=== PATIENT | female | born 2000 | race African-American/Black ===

== ENCOUNTER 2022-06-26 16:53 | Emergency (ER) | payer OTHER ==
[2022-06-26 17:01] VITALS: BP 106/73; PULSE 91; RESP 19; TEMP 97.9; BMI 32.8
== END 2022-06-26 20:11 | disposition home or self-care (01) ==
LOC: JERFT 16:53
DX: Z32.01 Encounter for pregnancy test, result positive (principal)
CPT/HCPCS: 36415; 84702; 99282-25

== ENCOUNTER 2023-03-03 18:58 | Emergency (ER) | payer OTHER ==
[2023-03-03 19:15] VITALS: BP 120/84; PULSE 65; RESP 18; TEMP 98.1; BMI 34.4
[2023-03-03 22:00] LABS: BASO % 0.8 % (0-2.0); EOS % 1.1 % (0-4.5); HEMATOCRIT 42.7 % (32.4-45.2); LYMPH % 37.3 % (8-40); MCH 24.6 pg (25.7-33.7); MCHC 32.8 g/dl (32.0-36.0); MEAN CELL VOLUME 74.9 fl (80-96); MEAN PLT VOLUME 10.4 fl (7.5-11.1); MONO % 9.6 % (3.8-10.2); NEUT % 51.2 % (42.8-82.8); PLATELET COUNT 222 10^3/uL (134-434); WHITE BLOOD COUNT 4.6 K/mm3 (4.0-10.0)
[2023-03-03 22:03] LABS: EPI CELLS 20 /uL (0-25.1); HYALINE CASTS 0 /uL (0-3.1); PH,URINE 5.5 (5.0-8.0); URINE APPEARANCE CLEAR; URINE BACTERIA 350 /uL (0-1359); URINE BILIRUBIN NEGATIVE (NEGATIVE); URINE COLOR YELLOW; URINE GLUCOSE (UA) NEGATIVE (NEGATIVE); URINE KETONE NEGATIVE (NEGATIVE); URINE LEUK ESTERASE NEGATIVE (NEGATIVE); URINE NITRITE NEGATIVE (NEGATIVE); URINE PROTEIN 1+ (NEGATIVE); URINE RBC 2 /uL (0-23.9); URINE UROBILINOGEN 0.2 mg/dL (0.2-1.0); URINE WBC 11 /uL (0-25.8)
[2023-03-03 22:17] LABS: ALBUMIN 3.7 g/dl (3.4-5.0); BLOOD UREA NITROGEN 15.7 mg/dL (7-18); CALCIUM 9.4 mg/dL (8.5-10.1)
[2023-03-03 22:20] LABS: CREATININE 1.1 mg/dL (0.55-1.3)
[2023-03-03 22:22] LABS: BILIRUBIN,TOTAL 0.8 mg/dL (0.2-1); TOT PROT 8.3 g/dl (6.4-8.2)
== END 2023-03-04 00:50 | disposition home or self-care (01) ==
LOC: JER 18:58
DX: K59.00 Constipation, unspecified (principal); R10.31 Right lower quadrant pain; R11.0 Nausea
CPT/HCPCS: 36415; 74177-TC; 76830-TC; 80053; 81003; 84703; 85025; 87086; 99285-25; Q9967

== ENCOUNTER 2023-05-03 18:11 | Emergency (ER) | payer OTHER ==
[2023-05-03 18:19] VITALS: BP 124/86; PULSE 88; RESP 18; TEMP 97.8; BMI 32.8
[2023-05-03] MEDS ORDERED: IBUPROFEN 600 MG TABLET (FP) PO ONE ×2 (18:33→18:37)
[2023-05-03] MEDS ORDERED: ACETAMINOPHEN 500 MG TABLET (FP) PO ONE (18:33)
[2023-05-03] MEDS ORDERED: ACETAMINOPHEN 500 MG TABLET (FP) ONE (18:37)
[2023-05-03] MEDS ORDERED: AMOXICILLIN 500 MG CAPSULE (FP) PO ONE (19:21)
[2023-05-03] MEDS ORDERED: AMOX TR/POT CLAV 500MG/125MG TABLETS (FP) ONE (19:22)
== END 2023-05-03 19:51 | disposition home or self-care (01) ==
LOC: JER 18:11
DX: J02.9 Acute pharyngitis, unspecified (principal)
CPT/HCPCS: 87651; 99283-25

== ENCOUNTER 2023-05-17 19:53 | Emergency (ER) | payer OTHER ==
[2023-05-17 20:03] VITALS: BP 116/77; RESP 20; TEMP 98.4; BMI 34.4
[2023-05-17 20:44] LABS: EPI CELLS 28 /uL (0-25.1); HYALINE CASTS 0 /uL (0-3.1); PH,URINE 5.5 (5.0-8.0); URINE APPEARANCE CLEAR; URINE BACTERIA 162 /uL (0-1359); URINE BILIRUBIN NEGATIVE (NEGATIVE); URINE COLOR YELLOW; URINE GLUCOSE (UA) NEGATIVE (NEGATIVE); URINE KETONE TRACE (NEGATIVE); URINE LEUK ESTERASE NEGATIVE (NEGATIVE); URINE NITRITE NEGATIVE (NEGATIVE); URINE PROTEIN 1+ (NEGATIVE); URINE RBC 6 /uL (0-23.9); URINE WBC 8 /uL (0-25.8)
[2023-05-17] MEDS ORDERED: SODIUM CHLORIDE 0.9% 500 ML INFUS.BAG IV ONE (20:47)
[2023-05-17] MEDS ORDERED: ONDANSETRON 4 MG/2 ML VIAL IVPUSH ONE (20:51)
[2023-05-17] MEDS ORDERED: ONDANSETRON 4 MG/2 ML VIAL ONE (21:04)
[2023-05-17 21:19] LABS: BASO % 0.6 % (0-2.0); HEMATOCRIT 41.6 % (32.4-45.2); HEMOGLOBIN 13.1 GM/dL (10.7-15.3); LYMPH % 34.4 % (8-40); MCH 23.5 pg (25.7-33.7); MCHC 31.5 g/dl (32.0-36.0); MEAN CELL VOLUME 74.7 fl (80-96); MEAN PLT VOLUME 9.9 fl (7.5-11.1); MONO % 12.1 % (3.8-10.2); NEUT % 51.9 % (42.8-82.8); PLATELET COUNT 215 10^3/uL (134-434); RBC 5.58 M/mm3 (3.60-5.2); RDW 14.1 % (11.6-15.6); WHITE BLOOD COUNT 4.8 K/mm3 (4.0-10.0)
[2023-05-17 21:29] LABS: CALCIUM 9.1 mg/dL (8.5-10.1)
[2023-05-17 21:30] LABS: ALBUMIN 3.3 g/dl (3.4-5.0)
[2023-05-17 21:35] LABS: BILIRUBIN,TOTAL 0.7 mg/dL (0.2-1); TOT PROT 7.1 g/dl (6.4-8.2)
== END 2023-05-17 22:02 | disposition home or self-care (01) ==
LOC: JER 19:53
PROC: 3E033GC Introduction of Other Therapeutic Substance into Peripheral Vein, Percutaneous Approach (ICD-10-PCS; principal; 2023-05-17)
DX: R11.2 Nausea with vomiting, unspecified (principal); R63.0 Anorexia; R60.0 Localized edema
CPT/HCPCS: 36415; 80053; 81003; 84703; 85025; 87086; 99284-25

== ENCOUNTER 2023-05-24 08:28 | Emergency (ER) | payer OTHER ==
[2023-05-24 08:32] VITALS: RESP 18; TEMP 98.5; BMI 34.4
[2023-05-24] MEDS ORDERED: DEXAMETHASONE SOD PHOSPHATE 10 MG/1 ML VIAL IM ONE (09:21)
[2023-05-24] MEDS ORDERED: ALBUTEROL SO4 2.5/IPRATROPIUM 0.5 INH SOL 3 ML VIAL.NEB. NEB ONE ×2 (09:21→09:24)
[2023-05-24] MEDS ORDERED: DEXAMETHASONE SOD PHOSPHATE 10 MG/1 ML VIAL ONE (09:24)
[2023-05-24 10:01] VITALS: BP 123/83; PULSE 89
== END 2023-05-24 10:28 | disposition home or self-care (01) ==
LOC: JER 08:28
PROC: 3E023GC Introduction of Other Therapeutic Substance into Muscle, Percutaneous Approach (ICD-10-PCS; principal; 2023-05-24)
PROC: 3E0F7GC Introduction of Other Therapeutic Substance into Respiratory Tract, Via Natural or Artificial Opening (ICD-10-PCS; 2023-05-24)
DX: R06.02 Shortness of breath (principal); J45.901 Unspecified asthma with (acute) exacerbation
CPT/HCPCS: 71046-TC-FY; 99284-25; J1100

== ENCOUNTER 2023-06-14 10:23 | Emergency (ER) | payer OTHER ==
[2023-06-14 10:41] VITALS: BP 124/76; PULSE 80; RESP 16; TEMP 98.3; BMI 36.0
[2023-06-14] MEDS ORDERED: SODIUM CHLORIDE 1,000 ML IV STA (11:36)
[2023-06-14] MEDS ORDERED: ACETAMINOPHEN 1000 MG/100 ML BAG IVPB ONE (11:36)
[2023-06-14] MEDS ORDERED: ONDANSETRON 4 MG TABLET PO ONE (11:36)
[2023-06-14] MEDS ORDERED: ACETAMINOPHEN INJECTION 100 ML IVPB ONE (11:48)
[2023-06-14] MEDS ORDERED: ONDANSETRON 4 MG/2 ML VIAL ONE (11:49)
[2023-06-14] MEDS ORDERED: ONDANSETRON 4 MG/2 ML VIAL IVPUSH ONE (12:11)
[2023-06-14 12:19] LABS: BASO % 0.6 % (0-2.0); EOS % 0.8 % (0-4.5); HEMATOCRIT 40.4 % (32.4-45.2); HEMOGLOBIN 12.7 GM/dL (10.7-15.3); LYMPH % 30.6 % (8-40); MCH 23.7 pg (25.7-33.7); MCHC 31.4 g/dl (32.0-36.0); MEAN CELL VOLUME 75.7 fl (80-96); MEAN PLT VOLUME 10.5 fl (7.5-11.1); PLATELET COUNT 231 10^3/uL (134-434); RBC 5.34 M/mm3 (3.60-5.2); RDW 13.8 % (11.6-15.6); WHITE BLOOD COUNT 4.4 K/mm3 (4.0-10.0)
[2023-06-14 13:08] LABS: ALBUMIN 3.3 g/dl (3.4-5.0); BILIRUBIN,TOTAL 0.4 mg/dL (0.2-1); BLOOD UREA NITROGEN 15.3 mg/dL (7-18); CALCIUM 8.8 mg/dL (8.5-10.1); POTASSIUM 3.8 mmol/L (3.5-5.1); TOT PROT 7.2 g/dl (6.4-8.2)
[2023-06-14 13:49] LABS: EPI CELLS 5 /uL (0-25.1); HCG,QUALITATIVE URINE Negative; HYALINE CASTS 0 /uL (0-3.1); URINE APPEARANCE CLEAR; URINE BACTERIA 60 /uL (0-1359); URINE BILIRUBIN NEGATIVE (NEGATIVE); URINE COLOR YELLOW; URINE GLUCOSE (UA) NEGATIVE (NEGATIVE); URINE KETONE NEGATIVE (NEGATIVE); URINE LEUK ESTERASE NEGATIVE (NEGATIVE); URINE NITRITE NEGATIVE (NEGATIVE); URINE PROTEIN 1+ (NEGATIVE); URINE RBC 12 /uL (0-23.9); URINE UROBILINOGEN 0.2 mg/dL (0.2-1.0); URINE WBC 3 /uL (0-25.8)
== END 2023-06-14 14:13 | disposition home or self-care (01) ==
LOC: JER 10:23
PROC: 3E033GC Introduction of Other Therapeutic Substance into Peripheral Vein, Percutaneous Approach (ICD-10-PCS; principal; 2023-06-14)
DX: R11.2 Nausea with vomiting, unspecified (principal); J02.9 Acute pharyngitis, unspecified
CPT/HCPCS: 36415; 80053; 81003; 83690; 84703; 85025; 87086; 87651; 99284-25

== ENCOUNTER 2023-06-28 14:14 | Emergency (ER) | payer OTHER ==
[2023-06-28 14:19] VITALS: BMI 36.0
[2023-06-28] MEDS ORDERED: METOCLOPRAMIDE HCL INJECTION 10 MG/2 ML VIAL IVPUSH ONE (14:22)
[2023-06-28] MEDS ORDERED: SODIUM CHLORIDE 0.9% 500 ML INFUS.BAG IV ONE (14:22)
[2023-06-28] MEDS ORDERED: ACETAMINOPHEN 1000 MG/100 ML BAG IVPB ONE (14:22)
[2023-06-28] MEDS ORDERED: METOCLOPRAMIDE HCL INJECTION 10 MG/2 ML VIAL ONE (14:45)
[2023-06-28] MEDS ORDERED: ACETAMINOPHEN INJECTION 100 ML IVPB ONE (14:45)
[2023-06-28 15:34] LABS: BASO % 0.5 % (0-2.0); EOS % 1.1 % (0-4.5); HEMATOCRIT 40.9 % (32.4-45.2); HEMOGLOBIN 12.7 GM/dL (10.7-15.3); LYMPH % 40.2 % (8-40); MCH 23.7 pg (25.7-33.7); MCHC 31.1 g/dl (32.0-36.0); MEAN CELL VOLUME 76.1 fl (80-96); MEAN PLT VOLUME 11.1 fl (7.5-11.1); MONO % 10.4 % (3.8-10.2); NEUT % 47.8 % (42.8-82.8); PLATELET COUNT 213 10^3/uL (134-434); RBC 5.38 M/mm3 (3.60-5.2); RDW 13.9 % (11.6-15.6); WHITE BLOOD COUNT 5.6 K/mm3 (4.0-10.0)
[2023-06-28 15:47] LABS: POTASSIUM 3.7 mmol/L (3.5-5.1)
[2023-06-28 15:49] LABS: CALCIUM 8.9 mg/dL (8.5-10.1)
[2023-06-28 15:50] LABS: ALBUMIN 3.3 g/dl (3.4-5.0); BLOOD UREA NITROGEN 13.4 mg/dL (7-18)
[2023-06-28 15:53] LABS: CREATININE 1.1 mg/dL (0.55-1.3)
[2023-06-28 15:54] LABS: BILIRUBIN,TOTAL 0.5 mg/dL (0.2-1); TOT PROT 6.9 g/dl (6.4-8.2)
[2023-06-28 17:59] VITALS: BP 122/78; PULSE 74; RESP 19; TEMP 97.9
== END 2023-06-28 17:56 | disposition home or self-care (01) ==
LOC: JER 14:14
PROC: 3E033NZ Introduction of Analgesics, Hypnotics, Sedatives into Peripheral Vein, Percutaneous Approach (ICD-10-PCS; principal; 2023-06-28)
PROC: 3E033GC Introduction of Other Therapeutic Substance into Peripheral Vein, Percutaneous Approach (ICD-10-PCS; 2023-06-28)
DX: R51.9 Headache, unspecified (principal); G43.111 Migraine with aura, intractable, with status migrainosus
CPT/HCPCS: 36415; 70450-TC; 80053; 84703; 85025; 99284-25

== ENCOUNTER 2023-09-12 16:38 | Emergency (ER) | payer OTHER ==
[2023-09-12 16:45] VITALS: BP 117/87; PULSE 108; RESP 20; TEMP 98.6; BMI 36.0
== END 2023-09-12 17:24 | disposition home or self-care (01) ==
LOC: JER 16:38
DX: K08.89 Other specified disorders of teeth and supporting structures (principal); R22.0 Localized swelling, mass and lump, head; K04.7 Periapical abscess without sinus
CPT/HCPCS: 99282-25

== ENCOUNTER 2023-11-19 08:08 | Emergency (ER) | payer OTHER ==
[2023-11-19 08:16] VITALS: BP 113/75; PULSE 76; RESP 17; TEMP 97.6; BMI 34.4
[2023-11-19 10:11] LABS: EPI CELLS >36 /uL (0-25.1); HYALINE CASTS 2 /uL (0-3.1); PH,URINE 5.5 (5.0-8.0); URINE APPEARANCE CLOUDY; URINE BACTERIA 257 /uL (0-1359); URINE BILIRUBIN NEGATIVE (NEGATIVE); URINE COLOR YELLOW; URINE GLUCOSE (UA) NEGATIVE (NEGATIVE); URINE KETONE 2+ (NEGATIVE); URINE LEUK ESTERASE NEGATIVE (NEGATIVE); URINE NITRITE NEGATIVE (NEGATIVE); URINE PROTEIN 1+ (NEGATIVE); URINE RBC 7 /uL (0-23.9); URINE WBC 23 /uL (0-25.8)
== END 2023-11-19 15:08 | disposition home or self-care (01) ==
LOC: JERFT 08:08
DX: H92.01 Otalgia, right ear (principal); R51.9 Headache, unspecified; H66.91 Otitis media, unspecified, right ear
CPT/HCPCS: 76817-TC; 81003; 84703; 99284-25

== ENCOUNTER 2024-01-01 02:37 | Emergency (ER) | payer OTHER ==
[2024-01-01 03:10] VITALS: BP 127/88; PULSE 80; RESP 20; TEMP 97.6; BMI 31.4
[2024-01-01] MEDS ORDERED: ACETAMINOPHEN INJECTION 100 ML IVPB ONE (03:48)
[2024-01-01] MEDS: ACETAMINOPHEN 1000 MG/100 ML BAG IVPB ONE (03:53)
[2024-01-01] MEDS ORDERED: METOCLOPRAMIDE HCL INJECTION 10 MG/2 ML VIAL ONE (03:55)
[2024-01-01] MEDS: METOCLOPRAMIDE HCL INJECTION 10 MG/2 ML VIAL IVPB ONE (04:00)
[2024-01-01] MEDS: SODIUM CHLORIDE 0.9% 500 ML INFUS.BAG IV ONE (04:00)
[2024-01-01 04:33] LABS: BASO % 0.2 % (0-2.0); EOS % 0.8 % (0-4.5); HEMATOCRIT 39.5 % (32.4-45.2); HEMOGLOBIN 12.6 GM/dL (10.7-15.3); LYMPH % 34.3 % (8-40); MCH 24.1 pg (25.7-33.7); MEAN CELL VOLUME 75.4 fl (80-96); MEAN PLT VOLUME 10.7 fl (7.5-11.1); NEUT % 54.7 % (42.8-82.8); PLATELET COUNT 224 10^3/uL (134-434); RBC 5.23 M/mm3 (3.60-5.2); RDW 14.3 % (11.6-15.6); WHITE BLOOD COUNT 8.5 K/mm3 (4.0-10.0)
[2024-01-01 05:28] LABS: EPI CELLS 36 /uL (0-25.1); HYALINE CASTS 1 /uL (0-3.1); URINE APPEARANCE CLOUDY; URINE BILIRUBIN NEGATIVE (NEGATIVE); URINE COLOR YELLOW; URINE GLUCOSE (UA) NEGATIVE (NEGATIVE); URINE KETONE 1+ (NEGATIVE); URINE LEUK ESTERASE NEGATIVE (NEGATIVE); URINE NITRITE NEGATIVE (NEGATIVE); URINE PROTEIN 1+ (NEGATIVE); URINE RBC 9 /uL (0-23.9); URINE WBC 13 /uL (0-25.8)
[2024-01-01 05:42] LABS: URINE BACTERIA 296.8 /uL (0-1359)
[2024-01-01 05:55] LABS: POTASSIUM 3.3 mmol/L (3.5-5.1)
[2024-01-01 05:57] LABS: ALBUMIN 3.6 g/dl (3.4-5.0); BLOOD UREA NITROGEN 9.3 mg/dL (7-18); CALCIUM 9.2 mg/dL (8.5-10.1); MAGNESIUM 1.9 mg/dL (1.8-2.4)
[2024-01-01 06:00] LABS: CREATININE 0.8 mg/dL (0.55-1.3)
[2024-01-01 06:02] LABS: BILIRUBIN,TOTAL 0.5 mg/dL (0.2-1); TOT PROT 7.6 g/dl (6.4-8.2)
== END 2024-01-01 06:49 | disposition home or self-care (01) ==
LOC: JER 02:37
PROC: 3E033NZ Introduction of Analgesics, Hypnotics, Sedatives into Peripheral Vein, Percutaneous Approach (ICD-10-PCS; principal; 2024-01-01)
PROC: 3E033GC Introduction of Other Therapeutic Substance into Peripheral Vein, Percutaneous Approach (ICD-10-PCS; 2024-01-01)
DX: O99.411 Diseases of the circulatory system complicating pregnancy, first trimester (principal); R07.89 Other chest pain; O21.9 Vomiting of pregnancy, unspecified; R51.9 Headache, unspecified; Z3A.12 12 weeks gestation of pregnancy; Z20.822 Contact with and (suspected) exposure to COVID-19
CPT/HCPCS: 0241U-QW; 36415; 80053; 81003; 83735; 84484; 85025; 87086; 93005; 93010; 99284-25; J0131

== ENCOUNTER 2024-01-25 10:00 | Emergency (ER) | payer OTHER ==
[2024-01-25 10:18] VITALS: BP 132/93; PULSE 64; RESP 18; TEMP 98; BMI 67.3
[2024-01-25] MEDS: ACETAMINOPHEN 325 MG TABLET (FP) PO ONE (11:11)
[2024-01-25] MEDS: IBUPROFEN 600 MG TABLET (FP) PO ONE (11:11)
[2024-01-25] MEDS: KETOROLAC TROMETHAMINE 30 MG/1 ML VIAL IM ONE (11:11)
[2024-01-25] MEDS ORDERED: KETOROLAC TROMETHAMINE 30 MG/1 ML VIAL ONE (11:12)
== END 2024-01-25 11:31 | disposition home or self-care (01) ==
LOC: JERFT 10:00
PROC: 3E0233Z Introduction of Anti-inflammatory into Muscle, Percutaneous Approach (ICD-10-PCS; principal; 2024-01-25)
DX: M79.605 Pain in left leg (principal); M54.50 Low back pain, unspecified; R51.9 Headache, unspecified; W10.9XXA Fall (on) (from) unspecified stairs and steps, initial encounter
CPT/HCPCS: 99284-25

== ENCOUNTER 2024-02-24 15:06 | Emergency (ER) | payer OTHER ==
[2024-02-24 15:18] VITALS: BP 135/97; PULSE 83; RESP 18; TEMP 98; BMI 32.1
[2024-02-24] MEDS: FAMOTIDINE 20 MG TABLET PO ONE (15:58)
[2024-02-24] MEDS ORDERED: FAMOTIDINE 20 MG TABLET ONE (15:59)
[2024-02-24] MEDS ORDERED: LIDOCAINE VISCOUS 2% ORAL/TOP 15 ML UNIT-DOSE CUP ONE (18:51)
[2024-02-24] MEDS ORDERED: SUCRALFATE 1 GM TABLET (FP) ONE (18:53)
[2024-02-24] MEDS: MAG HYDROX/AL HYDROX/SIMETH 30 ML UNIT-DOSE CUP PO ONE (18:54)
[2024-02-24] MEDS: SUCRALFATE 1 GM/10 ML UNIT DOSE CUPS PO ONE (18:54)
[2024-02-24] MEDS: LIDOCAINE VISCOUS 2% ORAL/TOP 15 ML UNIT-DOSE CUP MM ONE (18:54)
[2024-02-24 18:55] LABS: BASO % 0.7 % (0-2.0); EOS % 1.1 % (0-4.5); HEMATOCRIT 43.6 % (32.4-45.2); HEMOGLOBIN 13.7 GM/dL (10.7-15.3); LYMPH % 38.3 % (8-40); MCH 24.2 pg (25.7-33.7); MCHC 31.3 g/dl (32.0-36.0); MEAN CELL VOLUME 77.2 fl (80-96); MEAN PLT VOLUME 10.6 fl (7.5-11.1); MONO % 8.6 % (3.8-10.2); NEUT % 51.3 % (42.8-82.8); PLATELET COUNT 261 10^3/uL (134-434); RBC 5.65 M/mm3 (3.60-5.2); RDW 15.3 % (11.6-15.6)
[2024-02-24] MEDS ORDERED: MAG HYDROX/AL HYDROX/SIMETH 30 ML UNIT-DOSE CUP ONE (18:55)
[2024-02-24 19:22] LABS: POTASSIUM 3.7 mmol/L (3.5-5.1)
[2024-02-24 19:24] LABS: ALBUMIN 3.6 g/dl (3.4-5.0); CALCIUM 9.3 mg/dL (8.5-10.1)
[2024-02-24 19:25] LABS: BLOOD UREA NITROGEN 11.1 mg/dL (7-18)
[2024-02-24 19:28] LABS: CREATININE 0.9 mg/dL (0.55-1.3)
[2024-02-24 19:29] LABS: BILIRUBIN,TOTAL 1.2 mg/dL (0.2-1); TOT PROT 7.7 g/dl (6.4-8.2)
[2024-02-24 19:51] LABS: SYPHILIS W/ RPR CONF NON-REACTIVE (NONREACTIVE)
[2024-02-24 20:20] LABS: HIV INTERPRETATION NEGATIVE (NEGATIVE)
== END 2024-02-24 20:28 | disposition home or self-care (01) ==
LOC: JERFT 15:06
DX: K21.00 Gastro-esophageal reflux disease with esophagitis, without bleeding (principal); R07.9 Chest pain, unspecified; R13.10 Dysphagia, unspecified; R07.0 Pain in throat
CPT/HCPCS: 36415; 70360-TC-FY; 71046-TC-FY; 80053; 84484; 85025; 86704; 86780; 86803; 87340; 87389; 87491; 87517; 87591; 93005; 93010; 99285-25

== ENCOUNTER 2024-03-08 21:40 | Emergency (ER) | payer OTHER ==
[2024-03-08 21:53] VITALS: BP 140/91; PULSE 81; RESP 18; TEMP 98.3; BMI 32.1
[2024-03-08] MEDS ORDERED: ALBUTEROL SO4 2.5/IPRATROPIUM 0.5 INH SOL 3 ML VIAL.NEB. NEB ONE (23:07)
[2024-03-08] MEDS: ALBUTEROL SO4 2.5/IPRATROPIUM 0.5 INH SOL 3 ML VIAL.NEB. NEB SCH (23:13)
== END 2024-03-09 00:18 | disposition home or self-care (01) ==
LOC: JER 21:40
PROC: 3E0F7GC Introduction of Other Therapeutic Substance into Respiratory Tract, Via Natural or Artificial Opening (ICD-10-PCS; principal; 2024-03-08)
DX: R00.2 Palpitations (principal); R06.02 Shortness of breath; R07.89 Other chest pain
CPT/HCPCS: 93005; 93010; 99283-25